=== PATIENT | female | born 1985 | race American Indian/Alaskan Native ===

== ENCOUNTER 2020-10-17 03:47 | Emergency (ER) | payer SELFPAY ==
[2020-10-17 04:17] VITALS: BP 128/81
--- NOTE | 2020-10-17 04:26 | Emergency Department Report ---
ED Extremity Problem HPI - General Chief complaint: Extremity Problem,Nontraumatic Stated complaint: LT FOOT PAIN Source: patient Mode of arrival: Ambulatory Limitations: No Limitations - History of Present Illness Initial comments: Patient is a 34-year-old -[place] female with no past medical history presents to the ED with complaint of acute onset persistent nontraumatic left plantar foot pain for the last 3 days. Patient states that the pain is worse with ambulation or weight-bearing on the left foot. Patient states that she is on her feet most of the time at work and that this makes the pain worse. Patient denies fall, traumatic injury, dizziness, syncope, chest pain, shortness of breath, numbness and tingling or weakness of lower extremities bilaterally. MD Complaint: extremity pain (Left plantar foot pain), joint paint (left plantar foot pain) -: Sudden, days(s) (3) Location: lower extremity (left plantar foot pain) History of Same: No -: Yes arthralgia Radiation: distal Severity scale (0 -10): 8 Quality: aching, sharp, constant Consistency: constant Improves with: rest Worsens with: weight bearing, walking, exertion Associated Symptoms: denies other symptoms. denies: chest pain, shortness of breath, fever, myalgias, arthralgias, rash - Related Data Previous Rx's Medication Instructions Recorded Last Taken Type Naproxen 500 mg PO Q12H PRN #30 tablet 10/17/20 Unknown Rx predniSONE [Deltasone] 60 mg PO QDAY #15 tab 10/17/20 Unknown Rx Allergies Allergy/AdvReac Type Severity Reaction Status Date / Time No Known Allergies Allergy Unverified 10/17/20 04:12 ED Review of Systems ROS: Stated complaint: LT FOOT PAIN Other details as noted in HPI Constitutional: denies: chills, fever Eyes: denies: eye pain, eye discharge, vision change ENT: denies: ear pain, throat pain Respiratory: denies: cough, shortness of breath, wheezing Cardiovascular: denies: chest pain, palpitations Endocrine: no symptoms reported Gastrointestinal: denies: abdominal pain, nausea, diarrhea Genitourinary: denies: urgency, dysuria, discharge Musculoskeletal: arthralgia (Left plantar foot pain). denies: back pain, joint swelling Skin: denies: rash, lesions Neurological: denies: headache, weakness, paresthesias Psychiatric: denies: anxiety, depression Hematological/Lymphatic: denies: easy bleeding, easy bruising ED Past Medical Hx - Past Medical History Previous Medical History?: No - Surgical History Past Surgical History?: No - Social History Smoking Status: Never Smoker Substance Use Type: None - Medications Home Medications: Home Medications Medication Instructions Recorded Confirmed Last Taken Type Naproxen 500 mg PO Q12H PRN #30 tablet 10/17/20 Unknown Rx predniSONE [Deltasone] 60 mg PO QDAY #15 tab 10/17/20 Unknown Rx ED Physical Exam - General Limitations: No Limitations General appearance: alert, in no apparent distress - Head Head exam: Present: atraumatic, normocephalic, normal inspection - Eye Eye exam: Present: normal appearance, PERRL, EOMI Pupils: Present: normal accommodation - ENT ENT exam: Present: normal exam, normal orophraynx, mucous membranes moist, TM's normal bilaterally, normal external ear exam - Neck Neck exam: Present: normal inspection, full ROM - Respiratory Respiratory exam: Present: normal lung sounds bilaterally. Absent: respiratory distress, wheezes, rales, rhonchi, chest wall tenderness, accessory muscle use, prolonged expiratory - Cardiovascular Cardiovascular Exam: Present: regular rate, normal rhythm, normal heart sounds. Absent: systolic murmur, diastolic murmur, rubs, gallop - GI/Abdominal GI/Abdominal exam: Present: soft, normal bowel sounds. Absent: distended, guarding, rebound, hyperactive bowel sounds, hypoactive bowel sounds - Extremities Exam Extremities exam: Present: normal inspection, full ROM, tenderness (Palpable left plantar foot tenderness), normal capillary refill. Absent: pedal edema, joint swelling, calf tenderness - Back Exam Back exam: Present: normal inspection, full ROM. Absent: tenderness, CVA tenderness (R), CVA tenderness (L), muscle spasm, paraspinal tenderness, vertebral tenderness - Neurological Exam Neurological exam: Present: alert, oriented X3, CN II-XII intact, normal gait, reflexes normal - Psychiatric Psychiatric exam: Present: normal affect, normal mood - Skin Skin exam: Present: warm, dry, intact, normal color. Absent: rash ED Course Vital Signs 10/17/20 04:12 Temperature 98 F Pulse Rate 78 Respiratory 16 Rate Blood Pressure 128/81 [Left] O2 Sat by Pulse 98 Oximetry ED Medical Decision Making - Medical Decision Making This is a 34-year-old -[place] female with no past medical history presents to the ED with complaint of acute onset persistent nontraumatic left plantar foot pain for the last 3 days. Patient states that the pain is worse with ambulation or weight-bearing on the left foot. Patient states that she is on her feet most of the time at work and that this makes the pain worse. In the ED, patient is alert and oriented x3 and is not in any distress with normal vital signs. Patient the history and physical exam findings, patient symptoms are likely due to plantar fasciitis of left plantar foot. Patient was therefore discharged home on pain medications and advised to follow-up with the primary care physician in 7 to 10 days for reevaluation. Patient is advised return to the ED immediately if symptoms get worse. - Differential Diagnosis Plantar fasciitis; tendinitis; muscle strain; muscle spasm; Critical care attestation.: If time is entered above; I have spent that time in minutes in the direct care of this critically ill patient, excluding procedure time. ED Disposition Clinical Impression: Plantar fasciitis of left foot, Tendinitis of left foot Disposition: DC-01 TO HOME OR SELFCARE Is pt being admited?: No Does the pt Need Aspirin: No Condition: Stable Instructions: Plantar Fasciitis, Plantar Fasciitis Rehab-[facility] Additional Instructions: Take medication with food, drink plenty of fluids and follow-up with your primary care physician in 7 to 10 days for reevaluation. Return to the ED immediately if symptoms get worse. Prescriptions: predniSONE [Deltasone] 60 mg PO QDAY #15 tab Naproxen 500 mg PO Q12H PRN #30 tablet PRN Reason: Pain , Severe (7-10) Referrals: [facility] [Provider Group] - 7-10 days Forms: Work/School Release Form(ED) Time of Disposition: 04:26 Print Language: GERMAN
== END 2020-10-17 06:06 | disposition home or self-care (01) ==
LOC: ED 03:47
DX: M72.2 Plantar fascial fibromatosis (principal); M77.32 Calcaneal spur, left foot; Z79.899 Other long term (current) drug therapy
CPT/HCPCS: 99282